=== PATIENT | male | born 1990 | race Caucasian/White ===

== ENCOUNTER → 2019-02-08 18:09 | Outpatient (CLI) | payer OTHER, MEDICAID, SELFPAY ==
--- NOTE | 2019-02-08 18:14 | DI.MRI.S_ITS ---
PROCEDURE: MR KNEE LT WO CON INDICATIONS: knee pain, decreased ROM, r/o meniscus or ligamental injury TECHNIQUE: Noncontrast sagittal PD fast spin echo and T2 fast spin echo with fat saturation, sagittal 3-D FLASH with fat saturation; coronal T1 spin echo and PD fast spin echo with fat saturation, and axial PD fast spin echo with fat saturation through the knee. COMPARISON: None. FINDINGS: Image quality: Excellent. Menisci: The medial and lateral menisci demonstrate normal morphology and internal signal. The meniscal root ligaments appear intact. Cruciate ligaments: The anterior and posterior cruciate ligaments appear intact. Medial structures: The medial collateral ligament appears intact. Visualized portions of the pes anserinus tendons appear normal. No abnormal bursal fluid. Lateral structures: The lateral collateral ligament, long and short heads of the biceps femoris tendon appear intact. The popliteus tendon appears normal. Iliotibial band appears normal. Anterior structures: The quadriceps and patellar tendons appear intact. There is mild T2 signal elevation within the patellar tendon at the patellar insertion site. Patellar alignment is normal. No femoral trochlear dysplasia or ventral trochlear prominence there is minimal edema within the anterior aspect of the the infrapatellar fat pad adjacent to the patellar insertion of the patellar tendon. Bones and cartilage: No bone marrow contusions or fractures. There is mild degenerative marrow edema within the posterior aspect of the lateral tibial plateau, adjacent to the below-described capsular tear. The cartilage of the medial and lateral femorotibial compartments, as well as the patellofemoral compartment, appears normal in thickness. Joint space: There is physiologic knee joint fluid. Small Watkins's cyst. Normal appearing synovial plicae are incidentally noted. There is a small tear within the posterior lateral aspect of the knee joint capsule (series 7 image 25). There is a small adjacent soft tissue ganglion cyst measuring 18 mm transverse. IMPRESSION: 1. Mild patellar tendinitis. 2. Small capsular tear posterolaterally, with adjacent degenerative marrow edema in the posterolateral aspect of the tibial plateau, and a small adjacent soft tissue ganglion cyst. 3. Small Watkins cyst. Dictated by: Newton Rasmussen M.D. on 02/11/2019 at 9:47 Approved by: Newton Rasmussen M.D. on 02/11/2019 at 10:05
== END ==
PROVIDERS: Visit Provider Physician Assistant
DX: M25.562 Pain in left knee (principal); S83.8X2A Sprain of other specified parts of left knee, initial encounter; M76.52 Patellar tendinitis, left knee; M67.462 Ganglion, left knee
CPT/HCPCS: 73721